=== PATIENT | female | born 1980 | race Caucasian/White ===

== ENCOUNTER 2016-10-25 03:06 | Emergency (ER) | payer OTHER ==
[~2016-10-25 03:06] MED LIST: ACETAMINOPHEN PO; ALBUTEROL17 GM INH; CIPRO PO; FLEXERIL PO; FLEXERIL10 MG; GABAPENTIN400 M2; KETOPROFEN PO; LORTAB 5/500 TA1 TA1 PO; PEPCID PO; PHENERGAN PO; PHENERGAN25 MG PO; PROZAC PO; VICODIN 5/1 TAB 5/50 PO; VOLTAREN75 MG PO; ZOFRAN PO
[2016-10-25 03:24] LABS: INFLUENZA A POS (NEG); INFLUENZA B NEG (NEG)
== END 2016-10-25 03:36 | disposition home or self-care (01) ==
LOC: SED 03:06
PROVIDERS: Emergency Medicine
DX: J10.1 Influenza due to other identified influenza virus with other respiratory manifestations (principal); J45.909 Unspecified asthma, uncomplicated; Z88.6 Allergy status to analgesic agent
CPT/HCPCS: 87651; 87804; 99282